=== PATIENT | female | born 1940 | race Caucasian/White ===

== ENCOUNTER 2022-06-17 09:40 | Inpatient (IN) | payer MEDICARE, OTHER ==
[~2022-06-17] VITALS: Ht 160 cm; Wt 68.0 kg
--- NOTE | 2022-06-17 11:00 | NUR ---
[id number] FROM HOME C/O RIGHT FLANK PAIN S/P GLF THIS MORNING WHILE GETTING OFF OF BED, NO LOC, DID NOT HIT HEAD, COVID+ X2DAYS. PLACED ON BED, AAOX3, BREATHING EVEN AND UNLABORED. IN PAIN- FACIAL GRIMACES.
--- NOTE | 2022-06-17 11:21 | NUR ---
blood drawn and sent to lab
[2022-06-17 11:29] LABS: BASOPHILS % (AUTO) 0.6 % (0.0-2.0); EOSINOPHILS % (AUTO) 0.3 % (0.0-6.0); HEMATOCRIT 42 % (33-45); HEMOGLOBIN 13.6 g/dL (11.5-14.8); LYMPHOCYTES % (AUTO) 18.3 % (20.0-44.0); MEAN CORPUSCULAR HGB CONC 33 g/dl (31.0-36.0); MEAN CORPUSCULAR VOLUME 82 fL (82-100); MONOCYTES # (AUTO) 0.7 K/uL (0.1-1.30); MONOCYTES % (AUTO) 11.5 % (2.0-12.0); NEUTROPHILS % (AUTO) 69.3 % (43.0-81.0); PLATELET COUNT (AUTO) 265 K/uL (150-450); RED BLOOD CELL COUNT(AUTO) 5.07 MIL/uL (4.0-5.2); WHITE BLOOD COUNT (AUTO) 5.7 K/uL (4.3-11.0)
[2022-06-17 11:41] LABS: CALCIUM, SERUM 8.7 mg/dL (8.5-10.1); CREATININE 0.9 mg/dL (0.6-1.3); POTASSIUM 3.5 mmol/L (3.5-5.1)
[2022-06-17 11:47] LABS: ALBUMIN 3.6 g/dL (3.4-5.0); BILIRUBIN,DIRECT 0.1 mg/dL (0.0-0.2); BILIRUBIN,TOTAL 0.4 mg/dL (0.2-1.0); TOTAL PROTEIN, SERUM 8.2 g/dL (6.4-8.2)
--- NOTE | 2022-06-17 12:13 | NUR ---
URINE SAMPLE SENT TO LAB
[2022-06-17 12:33] LABS: BILIRUBIN,URINE NEGATIVE (NEGATIVE); COLOR,URINE YELLOW (YELLOW); LEUKOCYTE ESTERASE ,URINE NEGATIVE (NEGATIVE); NITRITE, URINE NEGATIVE (NEGATIVE); PROTEIN,URINE NEGATIVE (NEGATIVE); UGLUCOSE NEGATIVE (NEGATIVE); UROBILINOGEN,URINE 0.2 EU/dL (0.2)
[2022-06-17 12:44] LABS: BACTERIA,URINE Rare /HPF (None Seen); RBC,URINE 0-2 /HPF (0-2); SQUAMOUS EPITHELIAL CELL,UR Few /HPF (None Seen); WBC,URINE 0-2 /HPF (0-3)
--- NOTE | 2022-06-17 13:08 | NUR ---
MAY CONTACT JADA SHAUN AT [phone]
--- NOTE | 2022-06-17 14:57 | NUR ---
SWAB FOR COVID19 SENT TO LAB
--- NOTE | 2022-06-17 15:12 | NUR ---
MOVE SHEET SUBMITTED.
--- NOTE | 2022-06-17 15:15 | NUR ---
SS Note: SW was transferred call from ED to speak to the pt.'s daughter, SHAUN [phone]. Shaun stated that she needs caregiving resources for her mother as pt. has COVID right now. Per Shaun, the pt. also seems altered, weak and she is unable to care for her mother. Shaun stated she had already reached out to a SNF and they were working on accepting the pt. SW left new lifestyles guide to mcfp booklet in pt.'s charta as well as the following senior resources for caregiving. SW was notified by Heather tomas that the pt. may possibly be admitted. Noted. SW relayed above stated info. to Shaun who is agreeable and stated she would visit pt. after 6 pm. ABUSE PREVENTION: ELDER ABUSE HOTLINE (27/03) ADULT PROTECTIVE SERVICES HOTLINE LONG-TERM CARE [facility] Region AREA ON AGING (HOTLINE) ADULT DAY HEALTH CARE CARE CENTERS: Private pay or Medi-trihealth funded adult day care [facility] , [facility] Services , [facility] , [facility] Adult [facility] Care , [facility] Adult Day Health Care , [facility] Adult Daycare Center , [place] [facility] , [place] [facility] Adult [facility] , [place] ALZHEIMERS DISEASE/DEMENTIA: Alzheimers Association Helpline [facility] Chapter www.alz.org/[facility] Department of Aging www.lacity.org Family Caregiver Juda www.caregiver.org [place] Caregiver Resources Center/Family Support www.losangelesscrc.org CANCER RESOURCES: [place] Cancer Society www.cancer.org Cancer Support Community www.CancerSupportVvsb.org: CancerCare www.cancercare.org [facility] Cancer Support Mims www.[facility].org [facility] HEALTH ASSOCIATIONS: AARP www.aarp.org ALS Association (ask for Caity) www.als.org Ukrainian Diabetes Association www.diabetes.org Ukrainian Heart Association www.heart.org Ukrainian Lung Association www.lungusa.org Ukrainian Parkinson Disease Association www.apdaparkinson.org Ukrainian [place] , www.redcross.org Arthritis Foundation www.arthritis.org Crohns & Colitis Foundation of Ukrainian www.ccfa.org/chapters/[place] National Multiple Sclerosis Society www.nationalmssociety.org Myasthenia Gravis Foundation www.myasthenia-ca.org National Stroke Association www.stroke.org CONSERVATORSHIP & GUARDIANSHIP: AAR Lianet Deal Legal Services Center for Health Care Rights Eldercare Information and Referral Permanent Mold Supervisor [facility]: [facility] Bar Referral Service [facility] Legal Services Office of the Public Guardian [place] EYESIGHT DISORDER RESOURCES: [place] Macular Degeneration Foundation [facility] www.vedainstitute.org GRIEF AND BEREAVEMENT RESOURCES: [facility] , [facility] THE COYANOSA Connection , [facility] Bereavement Center , [place] HEARING DISORDER RESOURCES: [place] Telephone Access Program Deaf and Disabled Telecommunications Program www.ddtp.cpu.ca.gov HearRx Hearing Centers ([place]) Better Hearing Systems , [place] GLAD ([facility] Agency on Deafness) V/ TTY; Survey Technologist , [facility] Hearing [facility] -low income hearing aid assistance www.powder springsI Had Cancerjackson hospitalfoundation.org [place] [facility] , Maira HELP AT HOME CAREGIVER SUPPORT: In Home Support Services (Must have [facility] to be eligible) *Ask for a list of agencies that provide services to assist with care in the home. Local Senior Centers also have listings of care providers. HOME SAFETY MODIFICATIONS AND EQUIPMENT: Senior centers have additional referrals. [place] Housing and Community Investment Dept. Handyworker Program (low income) or Visit http://hcidla.[facility].org/ypk-swvpvu-xl for more information National Seating and Mobility and/or ; Forever Active www.foreveractivemed.com Stay Home Safe www.Stayhomesafe.com LIFE ALERT RESPONSE SYSTEM: Dreamfund Holdingsline Services 600-863-6016 www. Productify.Boticca Life Alert 952-440-5519 www.lifeStribert.Boticca Life Station 444-836-3201 www.J-Kanation.Boticca Safe Return 144-594-6059 www.alz.or/safereturn Cell Phones for Seniors www.Selah Genomics MEALS AND FOOD PROGRAMS: [place] Meals on Wheels [phone] [place] Meals on Wheels [phone] [facility] [phone] [place] to the Homebound [phone] Rock to the Homebound [phone] [facility] to the Homebound [phone] [facility] to the Homebound [phone] [facility] Vitor Quach [phone] [facility] 740-064-4721 ONE Generation [phone] [facility] [phone] [facility] [phone] Meals on Wheels [phone] For all ages: $6.85/ meal w side. Delivered M-F from 10 am-1pm. Application and payment is done over the phone. Frozen meals available for weekends. CloudWork Food [facility] [phone] [facility] Receptionist Scheduler [phone] [facility] [phone] [facility]- Brown bag lunches [phone] [facility] [phone] MEAL/GROCERY DELIVERY PROGRAMS: [facility] Gourmet Meals [phone]- [facility] [phone]- [facility] Magic Kitchen [phone] Moms Meals [phone] (ask Spann for Discount Select grocery stores may provide delivery. MEDICAL INSURANCE SUPPORT SERVICES: Center for Health Care Rights [phone] Health Insurance Counseling/Advocacy Programs (HICAP)-Must have Medicare. Offers counseling for Medi-Jorje eligibility [phone] Department of Public Receptionist Scheduler [phone] www.dhcs.ca.gov Medicare 264-223-8466 www.socialsecurity.org Social Security [phone] SENIOR ACTIVITY PROGRAMS: *Contact a local senior center, adult school, recreation facility or community college for education, fitness, recreation, and social programs. Aquatic Therapy and Adapted Exercise programs through [facility] [phone] Encore at [facility] [phone] www.[facility]/encore H2U- Senior Friends [phone] [place] Senior Programs [phone] www.oasisnet.org Suddenly 65 www..com SENIOR CENTERS: [facility] [phone] [facility] [phone] [facility] [phone] [facility] [phone] [facility] [phone] [facility] [phone] [facility] [phone] [facility] [phone] [facility] [phone] [facility] [phone] [facility] [phone] [facility] [phone] [facility] [phone] TRANSPORTATION: Local [facility] may have applications for transportation programs and additional resources. ACCESS Services [phone] Transportation for seniors and disabled persons 7 days a week requiring 254 hr. advance reservation. Must apply and register for program aubrey eligible. [employer] 759-163-2387 or [phone] Transportation for seniors and persons with ADA card/metro disabled card in the [facility]. M-F only. Must register for services. ONE GENERATION [phone] Serves 65 years + in conjunction with Women.come program. Must be registered with both programs. A to B Transport [phone] Provides wheelchair/gurney van service. Adult Medical Transport [phone] Accepts [facility]-trihealth with prior authorization. Care Van [phone] Provides wheelchair Transport. City Wide Transportation [phone] Provides gurney service Gentle Care [phone] Gurney Transport. All Town Transportation [phone] wheelchair & gurney transport D Transportation [phone] wheelchair & gurney transport [place] Non-Emergency Transport [phone] wheelchair & gurney transport Independent Living Center [phone] Short Term Transportation primarily for adults with disabilities on social security income. Nominal fee may apply and a reservation is required. [facility] Cab [phone] or [phone] Kindful [phone] [place] [address] Referral Services -[phone] For additional programs & services VETERANS RESOURCES: Submissions for Aid and Attendance should be done directly to [facility] office locatd at : [address] [phone] National Caregiver Support Line [phone] [facility] Veterans Services Field Office [phone] [place] Department of [place] Affairs [phone] Pension Information [phone]
[2022-06-17] MEDS ORDERED: OLME40TA18 PO (15:20)
[2022-06-17] MEDS ORDERED: DOCU250C14 PO (15:20)
[2022-06-17] MEDS ORDERED: SITA1TAB2 PO (15:20)
[2022-06-17] MEDS ORDERED: ATOR40TA PO (15:20)
[2022-06-17] MEDS ORDERED: CALC500T52 PO (15:20)
[2022-06-17] MEDS ORDERED: DULO30CA52 PO (15:20)
[2022-06-17] MEDS ORDERED: ICOS1CAP PO (15:20)
[2022-06-17] MEDS ORDERED: ASPI-1420 PO (15:20)
[2022-06-17] MEDS ORDERED: DEXL60CA3 PO (15:20)
[2022-06-17] MEDS ORDERED: FENO134C PO (15:20)
[2022-06-17] MEDS ORDERED: METO-357 PO (15:20)
--- NOTE | 2022-06-17 15:37 | NUR ---
HAYES [phone] JADA FOR UPDATES
--- NOTE | 2022-06-17 16:59 | NUR ---
GOT BED 102
--- NOTE | 2022-06-17 18:00 | NUR ---
PT REPORT GIVEN TO ABENA KOO
--- NOTE | 2022-06-17 18:20 | NUR ---
PATIENT ADMITTED FOR AMBREEN ROOM 110
--- NOTE | 2022-06-17 18:40 | NUR ---
rn note patient is alert and oriented x2. patient is wolof speaking only.patient skin intact. patient is on covid isolation. patient is on room air tolerating above 95%. patient has iv. iv intact, flushing well. patient is fall risk.all safety measures in place. call light within reach. bed locked at lowest position. side rails up x2.bed alarm on
[2022-06-17 18:50] VITALS: BP 112/75
--- NOTE | 2022-06-17 19:20 | NUR ---
rn closing note patient is alert and oriented x2. patient is luxembourgish speaking only.patient skin intact. patient is on covid isolation. patient is on room air tolerating above 95%. no signs of pain or discomfort. patient has iv. iv intact, flushing well. patient is fall risk.all safety measures in place. call light within reach. bed locked at lowest position. side rails up x2.bed alarm on.patient orders not yet placed. endorsed to slot shift supervisor rn
--- NOTE | 2022-06-17 19:30 | NUR ---
MS RN NOTE RECEIVED PATIENT IN BED, A/OX3 LATVIAN SPEAKING. ON RA TOLERATING WELL, NO S/S OF ACUTE DISTRESS. PATEINT HAS A SMALL PRODUCTIVE COUGH. IV ACCESS ON LAC #20G, CURRENTLY AWAITING ORDERS FROM A NEW ADMIT. ALL SAFETY MEASURES IN PLACE, CALL LIGHT WITHIN REACH AT ALL TIMES. WILL CONTINUE TO MONITOR THROUGHOUT SHIFT.
[2022-06-17 20:00] VITALS: BP 143/83
--- NOTE | 2022-06-17 20:05 | NUR ---
RN NOTE STARTED COOLING MEASURES. ICE PACKS SINCE NO ORDERS FROM OF YET.
--- NOTE | 2022-06-17 20:13 | NUR ---
RN NOTE SWALLOW EVAL DONE AT BEDSIDE PATIENT ABLE TO DRINK WATER WITH NO SIGNS ASPIRATIONS. NO DIET IN ORDERS OF YET.
--- NOTE | 2022-06-17 21:25 | NUR ---
RN NOTE MESSAGED DR KRAMER ADVISED OF NEW TEMP, WENT DOWN TO 99.[address] KRAMER ADVISED IN THE PROCESS OF DOING THE ORDERS.
--- NOTE | 2022-06-17 23:07 | NUR ---
RN NOTE GOT AN ORDER FOR SOFT WRIST RESTRAINTS FROM DR. KRAMER, PATIENT IS A FALL RISK, AND KEEPS TAKING OFF GOWN, AND PULLED OUT HER IV. NEW IV INSERTED ON LAC #20G
[2022-06-18] MEDS ORDERED: ALBUTEROL FS 2.5 MG/0.5 ML VIAL.NEB NEB SCH (00:30)
[2022-06-18] MEDS ORDERED: ACETAMINOPHEN 325 MG TABLET PO PRN (00:30)
[2022-06-18] MEDS ORDERED: Z GUARD REMEDY 4 OZ OINT TP PRN (00:30)
[2022-06-18] MEDS ORDERED: ONDANSETRON HCL/PF 4 MG/2 ML VIAL IVP PRN (00:30)
[2022-06-18] MEDS: ENOXAPARIN SODIUM 40 MG/0.4 ML DISP.SYRIN SQ SCH ×2 (00:47→21:35)
[2022-06-18] MEDS: IPRATROPIUM NEB FS 0.5 MG/2.5 ML AMPUL.NEB NEB SCH ×7 (03:30→23:42)
[2022-06-18 04:00] VITALS: BP 119/72
[2022-06-18 06:49] LABS: BASOPHILS % (AUTO) 0.8 % (0.0-2.0); EOSINOPHILS % (AUTO) 0.6 % (0.0-6.0); HEMATOCRIT 42 % (33-45); HEMOGLOBIN 13.7 g/dL (11.5-14.8); LYMPHOCYTES # (AUTO) 1.2 K/uL (0.8-4.8); LYMPHOCYTES % (AUTO) 22.4 % (20.0-44.0); MEAN CORPUSCULAR HGB CONC 33 g/dl (31.0-36.0); MEAN CORPUSCULAR VOLUME 83 fL (82-100); MONOCYTES # (AUTO) 0.6 K/uL (0.1-1.30); MONOCYTES % (AUTO) 10.7 % (2.0-12.0); NEUTROPHILS # (AUTO) 3.6 K/uL (1.8-8.9); NEUTROPHILS % (AUTO) 65.5 % (43.0-81.0); PLATELET COUNT (AUTO) 248 K/uL (150-450); RED BLOOD CELL COUNT(AUTO) 5.05 MIL/uL (4.0-5.2); WHITE BLOOD COUNT (AUTO) 5.5 K/uL (4.3-11.0)
[2022-06-18 07:14] LABS: CHOLESTEROL 212 mg/dL (<200); HDL CHOLESTEROL 26 mg/dL (40-60); LDL 144 mg/dL (0-99); TRIGLYCERIDES 265 mg/dL (30-150)
--- NOTE | 2022-06-18 07:37 | NUR ---
MS RN CLOSING NOTE PATIENT IN BED, A/OX3 BELIZEAN SPEAKING. ON RA TOLERATING WELL, NO S/S OF ACUTE DISTRESS. PATEINT HAS A SMALL PRODUCTIVE COUGH. IV ACCESS ON LAC #20G, INTACT AND PATENT, VSS. ALL SAFETY MEASURES IN PLACE, CALL LIGHT WITHIN REACH AT ALL TIMES. WILL ENDORSE TO MORNING SHIFT.
[2022-06-18 08:00] VITALS: BP 123/73
[2022-06-18] MEDS: GLUCERNA SHAKE 237 ML CAN PO SCH ×2 (08:00→16:52)
--- NOTE | 2022-06-18 08:00 | NUR ---
RN NOTES RECEIVED PATIENT IN THE BED , MACEDONIAN SPEAKER. PATIENT ISOLATION OF COVID-19, SIGN AND SYMPTOMS OF COUGHING, ALSO PATIENT HAS PREVIOUS FALL AT HOME. PATIENT UNSTABLE TO AMBULATE, HIGH FALL RISK. RECHECKED BILATERAL RESTRAIN CIRCULATION INTACT. DUE MEDICATION ADMINISTERED. CALL LIGHT WITHIN TO REACH . PATIENT USING DIAPER. CALL LIGHT WITHIN TO REACH. WILL FOLLOW UP.
[2022-06-18 08:50] LABS: ALANINE AMINOTRANSFERASE 20 U/L (12-78); ALBUMIN 3.3 g/dL (3.4-5.0); ALKALINE PHOSPHATASE 33 U/L (46-116); ASPARTATE AMINOTRANSFERASE 51 U/L (15-37); BILIRUBIN,TOTAL 0.4 mg/dL (0.2-1.0); CALCIUM, SERUM 8.7 mg/dL (8.5-10.1); CARBON DIOXIDE 17 mmol/L (21-32); CHLORIDE 102 mmol/L (98-107); CREATININE 0.8 mg/dL (0.6-1.3); GLUCOSE 144 mg/dL (74-106); MAGNESIUM 2.1 mg/dL (1.8-2.4); PHOSPHORUS 3.8 mg/dL (2.5-4.9); POTASSIUM 3.6 mmol/L (3.5-5.1); SODIUM SERUM 135 mmol/L (136-145); TOTAL PROTEIN, SERUM 7.9 g/dL (6.4-8.2); UREA NITROGEN, BLOOD 13 mg/dL (7-18)
[2022-06-18] MEDS: CALCIUM CARBONATE (1250) 500 MG TABLET PO SCH ×2 (10:56→16:52)
[2022-06-18] MEDS: PANTOPRAZOLE 40 MG TABLET.DR PO SCH (10:56)
[2022-06-18] MEDS: DOCUSATE SODIUM 250 MG CAPSULE PO SCH ×2 (10:56→16:52)
[2022-06-18] MEDS: ASPIRIN EC 81 MG TABLET.DR PO SCH (10:57)
[2022-06-18] MEDS: DULOXETINE HCL 30 MG CAPSULE.DR PO SCH (10:57)
[2022-06-18] MEDS: METOPROLOL SUCCINATE 50 MG TAB.SR.24H PO SCH (10:58)
[2022-06-18] MEDS: DEXAMETHASONE SOD PHOSPHATE 10 MG/ML VIAL IV SCH (10:58)
[2022-06-18 12:00] VITALS: BP 120/68
--- NOTE | 2022-06-18 12:45 | NUR ---
RN NOTES PATIENT WAS COMPLAINING OF PAIN LEFT AND RIGHT SHOULDERS. NOTIFIED HOSPITALIST Dr KRAMER, AND GET VERBAL ORDER LEFT AND RIGHT SHOULDER X-RAY. ORDER TAKEN AND CARRIED OUT.
--- NOTE | 2022-06-18 13:01 | NUR ---
RN NOTES PER YESTERDAY X-RAY RESULT Indication: Left shoulder status post fall Technique: AP views of the left shoulder in external and internal rotation are provided. Findings: Superior glenoid rim demonstrates questionable irregularity. Glenohumeral joint is unremarkable. Impression: Glenoid: Questionable irregularity of the superior glenoid rim, raising the possibility of subacute injury. If indicated, CT can be obtained for further evaluation. NOTIFIED DR SREEKANTH KRAMER, AND WAITING FOR NEW ORDERS.
[2022-06-18 16:00] VITALS: BP 153/78
--- NOTE | 2022-06-18 16:00 | NUR ---
rn notes patient taken to the CT scan at this time.
--- NOTE | 2022-06-18 17:34 | NUR ---
rn notes per family unable take patient home because of covid-19, case management aware of transfer to the facilities excepting , and notified hospitalist as well.
--- NOTE | 2022-06-18 18:30 | NUR ---
rn notes patient stable, pm care done, no acute respiratory distress, room air, due medication administered, vss. rechecked bilateral wrist restrain for circulation . side rails up bed alarm on for safety precaution. endorsed oncoming nurse follow plan of care.
[2022-06-18 20:00] VITALS: BP 144/86
--- NOTE | 2022-06-18 20:23 | NUR ---
RN NOTE RECEIVED PT IN BED, AWAKE, ALERT, SOME CONFUSION. NOT IN ANY DISTRESS. ERICKA WRIST RESTRAINTS ON, GOOD CIRCULATION. COMPLAINED OF R SHOULDER MILD PAIN. ALL SAFETY MEASURES IN PLACE, WILL CONTINUE TO MONITOR.
--- NOTE | 2022-06-18 21:08 | NUR ---
RN NOTE SPOKE TO PT DAUGHTER SHAUN. WAS INFORMED THAT PT HAVE OSTEOARTHRITIS AND TAKES TRAMADOL AT HOME BUT UNSURE OF THE DOSE. NOTIFIED HUMAN RESOURCES DESIGNATE UGO, TO ORDER TRAMADOL 50MG PO Q6H PRN FOR PAIN.
[2022-06-18] MEDS: TRAMADOL HCL 50 MG TABLET PO PRN (21:35)
[2022-06-18] MEDS: ATORVASTATIN 40 MG TABLET PO SCH (21:36)
--- NOTE | 2022-06-19 00:52 | NUR ---
RN NOTE PT ABLE TO REMOVED RESTRAINTS, ATTEMPTING TO GET OUT FROM BED. SAFETY MEASURES MAINTAINED.
[2022-06-19] MEDS: IPRATROPIUM NEB FS 0.5 MG/2.5 ML AMPUL.NEB NEB SCH ×7 (03:22→23:30)
[2022-06-19 04:00] VITALS: BP 149/70
[2022-06-19 07:08] LABS: BASOPHILS % (AUTO) 0.2 % (0.0-2.0); HEMATOCRIT 39 % (33-45); LYMPHOCYTES # (AUTO) 0.9 K/uL (0.8-4.8); LYMPHOCYTES % (AUTO) 19.7 % (20.0-44.0); MEAN CORPUSCULAR HGB CONC 33 g/dl (31.0-36.0); MEAN CORPUSCULAR VOLUME 82 fL (82-100); MONOCYTES # (AUTO) 0.4 K/uL (0.1-1.30); MONOCYTES % (AUTO) 9.3 % (2.0-12.0); NEUTROPHILS # (AUTO) 3.4 K/uL (1.8-8.9); NEUTROPHILS % (AUTO) 70.8 % (43.0-81.0); PLATELET COUNT (AUTO) 264 K/uL (150-450); RED BLOOD CELL COUNT(AUTO) 4.75 MIL/uL (4.0-5.2); WHITE BLOOD COUNT (AUTO) 4.8 K/uL (4.3-11.0)
[2022-06-19 07:20] LABS: CALCIUM, SERUM 9.2 mg/dL (8.5-10.1); CREATININE 0.7 mg/dL (0.6-1.3); PHOSPHORUS 3.1 mg/dL (2.5-4.9)
--- NOTE | 2022-06-19 07:28 | NUR ---
RN NOTE PT SLEEPING. AROUSES EASILY. NOT IN ANY DISTRESS. ISOLATION PRECAUTION MAINTAINED. REMAIN AFEBRILE. ON FREQUENT VISUAL CHECKS. ALL SAFETY MEASURES MAINTAINED. ENDORSED TO AM SHIFT NURSE FOR AMBREEN.
--- NOTE | 2022-06-19 07:29 | NUR ---
RN OPENING NOTE RECEIVED PT IN BED, AWAKE, ALERT, SOME CONFUSION. NOT IN ANY DISTRESS. ERICKA WRIST RESTRAINTS ON, CIRCULATION IS WITHIN NORMAL LIMITS. IV ACCESS ON LEFT ANTECUBITAL 20 GAUGE. ALL SAFETY MEASURES IN PLACE, WILL CONTINUE PLAN OF CARE AND ANTICIPATE NEEDS.
[2022-06-19] MEDS: PANTOPRAZOLE 40 MG TABLET.DR PO SCH (07:54)
[2022-06-19] MEDS: GLUCERNA SHAKE 237 ML CAN PO SCH ×2 (07:56→16:26)
--- NOTE | 2022-06-19 09:09 | NUR ---
TX NOT GIVEN DUE COVID POSITIVE Addendum: 06/19/22 at 0911 by CONSUELO GOMEZ RT Amended: Links added.
[2022-06-19] MEDS: DEXAMETHASONE SOD PHOSPHATE 10 MG/ML VIAL IV SCH (09:36)
[2022-06-19] MEDS: ASPIRIN EC 81 MG TABLET.DR PO SCH (09:37)
[2022-06-19] MEDS: DULOXETINE HCL 30 MG CAPSULE.DR PO SCH (09:37)
[2022-06-19] MEDS: DOCUSATE SODIUM 250 MG CAPSULE PO SCH ×2 (09:37→16:26)
[2022-06-19] MEDS: METOPROLOL SUCCINATE 50 MG TAB.SR.24H PO SCH (09:37)
[2022-06-19] MEDS: CALCIUM CARBONATE (1250) 500 MG TABLET PO SCH ×2 (09:37→16:26)
[2022-06-19 12:00] VITALS: BP 156/72
[2022-06-19 16:00] VITALS: BP 137/68
--- NOTE | 2022-06-19 18:28 | NUR ---
RN CLOSING NOTE PATIENT IN BED, AWAKE, ALERT, SOME CONFUSION. NOT IN ANY DISTRESS. ERICKA WRIST RESTRAINTS ON, CIRCULATION IS WITHIN NORMAL LIMITS. IV ACCESS ON LEFT ANTECUBITAL 20 GAUGE FLUSHING EASILY WITHOUT RESISTANCE. ALL SAFETY MEASURES IN PLACE. ALL DUE MEDICATIONS GIVEN ORDERED. WILL ENDORSE TO NIGHTSHIFT RN FOR CONTINUATION OF CARE.
[2022-06-19 20:00] VITALS: BP 162/76
[2022-06-19] MEDS: ATORVASTATIN 40 MG TABLET PO SCH (21:43)
[2022-06-19] MEDS: ENOXAPARIN SODIUM 40 MG/0.4 ML DISP.SYRIN SQ SCH (21:45)
[2022-06-19] MEDS: TRAMADOL HCL 50 MG TABLET PO PRN (23:19)
[2022-06-20] VITALS: BP 149/76
[2022-06-20] MEDS: IPRATROPIUM NEB FS 0.5 MG/2.5 ML AMPUL.NEB NEB SCH ×6 (02:59→23:30)
[2022-06-20 04:00] VITALS: BP 152/71
[2022-06-20 05:53] LABS: BASOPHILS % (AUTO) 0.2 % (0.0-2.0); EOSINOPHILS % (AUTO) 0.1 % (0.0-6.0); HEMATOCRIT 39 % (33-45); HEMOGLOBIN 12.9 g/dL (11.5-14.8); LYMPHOCYTES # (AUTO) 1.3 K/uL (0.8-4.8); MEAN CORPUSCULAR HGB CONC 33 g/dl (31.0-36.0); MEAN CORPUSCULAR VOLUME 82 fL (82-100); MONOCYTES # (AUTO) 0.7 K/uL (0.1-1.30); MONOCYTES % (AUTO) 8.9 % (2.0-12.0); NEUTROPHILS # (AUTO) 5.3 K/uL (1.8-8.9); NEUTROPHILS % (AUTO) 72.8 % (43.0-81.0); PLATELET COUNT (AUTO) 266 K/uL (150-450); RED BLOOD CELL COUNT(AUTO) 4.78 MIL/uL (4.0-5.2); WHITE BLOOD COUNT (AUTO) 7.3 K/uL (4.3-11.0)
--- NOTE | 2022-06-20 06:38 | NUR ---
RN CLOSING NOTE PATIENT RESTING IN BED. ON COVID ISOLATION. A/OX2, ROOM AIR. NO SOB NOTED. PATIENT C/O PAIN PRN TRAMADOL GIVEN. MED SURG STATUS. POSSIBLE DC TODAY.
[2022-06-20 06:50] LABS: CALCIUM, SERUM 9.2 mg/dL (8.5-10.1); CREATININE 0.8 mg/dL (0.6-1.3); MAGNESIUM 1.6 mg/dL (1.8-2.4); PHOSPHORUS 2.9 mg/dL (2.5-4.9); POTASSIUM 3.7 mmol/L (3.5-5.1)
--- NOTE | 2022-06-20 07:05 | NUR ---
RN OPENING NOTES" received patient in bed asleep but easily arousable, alert and oriented x2. patient is danish speaking only.patient skin intact. patient is on contact and droplet isolation for COVID. patient is on room air tolerating above 95%. patient has iv on LAC G#20. iv intact, flushing well. patient is fall risk.all safety measures in place. call light within reach. bed locked at lowest position. side rails up x2.bed alarm on, will monitor
[2022-06-20] MEDS: PANTOPRAZOLE 40 MG TABLET.DR PO SCH (07:35)
[2022-06-20 08:00] VITALS: BP 143/82
[2022-06-20] MEDS: GLUCERNA SHAKE 237 ML CAN PO SCH ×2 (08:09→17:51)
[2022-06-20] MEDS: ASPIRIN EC 81 MG TABLET.DR PO SCH (09:13)
[2022-06-20] MEDS: METOPROLOL SUCCINATE 50 MG TAB.SR.24H PO SCH (09:13)
[2022-06-20] MEDS: DOCUSATE SODIUM 250 MG CAPSULE PO SCH ×2 (09:13→17:51)
[2022-06-20] MEDS: CALCIUM CARBONATE (1250) 500 MG TABLET PO SCH ×2 (09:13→17:51)
[2022-06-20] MEDS: DULOXETINE HCL 30 MG CAPSULE.DR PO SCH (09:13)
[2022-06-20] MEDS ORDERED: MAGNESIUM OXIDE 400 MG TABLET PO ONE (10:00)
[2022-06-20 16:00] VITALS: BP 130/69
--- NOTE | 2022-06-20 18:37 | NUR ---
RN NOTES: PT DAUGHTER ASK WHAT DM MEDICINE RESIDENT HAS, SPOKE TO DR SREEKANTH KRAMER WITH ORDER TO START MILD SLIDING SCALE AND SHE CAN RESTART METFORMIN UPON DISCHARGE, ORDER NOTED AND CARRIED OUT
[2022-06-20] MEDS ORDERED: DEXTROSE 50%-WATER 50 ML DISP.SYRIN IV PRN (19:00)
--- NOTE | 2022-06-20 19:30 | NUR ---
MS RN OPENING NOTE RECEIVED PATIENT IN BED, A/OX3 HEBREW SPEAKING, WITH EPISODES OF CONFUSION. ON RA TOLERATING WELL, NO S/S OF ACUTE DISTRESS. IV ACCESS ON LAC #20G, INTACT AND PATENT, VSS.ERICKA WRIST RESTRAINTS ORDERED NOT ON AT THE MOMENT, CIRCULATION IS WITHIN NORMAL LIMITS. ALL SAFETY MEASURES IN PLACE, CALL LIGHT WITHIN REACH AT ALL TIMES. WILL CONTINUE TO MONITOR THROUGHOUT SHIFT.
--- NOTE | 2022-06-20 19:32 | NUR ---
RN CLOSING NOTE PATIENT IN BED, AWAKE, ALERT, SOME CONFUSION. NOT IN ANY DISTRESS. continue on COVID isolation. IV ACCESS ON LEFT ANTECUBITAL 20 GAUGE FLUSHING EASILY WITHOUT RESISTANCE. ALL SAFETY MEASURES IN PLACE. ALL DUE MEDICATIONS GIVEN ORDERED. WILL ENDORSE TO NIGHTSHIFT RN FOR CONTINUATION OF CARE.
[2022-06-20 20:00] VITALS: BP 143/67
[2022-06-20] MEDS: ATORVASTATIN 40 MG TABLET PO SCH (21:29)
[2022-06-20] MEDS: ENOXAPARIN SODIUM 40 MG/0.4 ML DISP.SYRIN SQ SCH (21:30)
[2022-06-21] MEDS: BLOOD SUGAR DIAGNOSTIC 1 EACH STRIP IN SCH ×3 (00:51→12:14)
[2022-06-21] MEDS: INSULIN REGULAR, HUMAN 100 UNIT/ML 3 ML VIAL SQ PRN ×3 (00:51→12:13)
[2022-06-21] MEDS: IPRATROPIUM NEB FS 0.5 MG/2.5 ML AMPUL.NEB NEB SCH ×3 (03:30→11:19)
[2022-06-21 04:00] VITALS: BP 109/73
[2022-06-21 05:59] LABS: BASOPHILS % (AUTO) 0.3 % (0.0-2.0); EOSINOPHILS % (AUTO) 0.6 % (0.0-6.0); HEMATOCRIT 39 % (33-45); HEMOGLOBIN 13.1 g/dL (11.5-14.8); LYMPHOCYTES # (AUTO) 1.6 K/uL (0.8-4.8); MEAN CORPUSCULAR HGB CONC 33 g/dl (31.0-36.0); MEAN CORPUSCULAR VOLUME 81 fL (82-100); MONOCYTES # (AUTO) 0.6 K/uL (0.1-1.30); MONOCYTES % (AUTO) 8.7 % (2.0-12.0); NEUTROPHILS # (AUTO) 4.5 K/uL (1.8-8.9); NEUTROPHILS % (AUTO) 66.4 % (43.0-81.0); PLATELET COUNT (AUTO) 231 K/uL (150-450); RED BLOOD CELL COUNT(AUTO) 4.87 MIL/uL (4.0-5.2); WHITE BLOOD COUNT (AUTO) 6.8 K/uL (4.3-11.0)
[2022-06-21 06:19] LABS: CALCIUM, SERUM 8.7 mg/dL (8.5-10.1); CARBON DIOXIDE 27 mmol/L (21-32); CHLORIDE 100 mmol/L (98-107); CREATININE 0.7 mg/dL (0.6-1.3); GLUCOSE 122 mg/dL (74-106); MAGNESIUM 1.8 mg/dL (1.8-2.4); POTASSIUM 3.1 mmol/L (3.5-5.1); SODIUM SERUM 133 mmol/L (136-145); UREA NITROGEN, BLOOD 15 mg/dL (7-18)
--- NOTE | 2022-06-21 06:59 | NUR ---
MS RN CLOSING NOTE PATIENT IN BED, A/OX3 MALIAN SPEAKING, WITH EPISODES OF CONFUSION. ON RA TOLERATING WELL, NO S/S OF ACUTE DISTRESS. IV ACCESS ON LAC #20G, INTACT AND PATENT, VSS. ERICKA WRIST RESTRAINTS ORDERED NOT ON AT THE MOMENT, CIRCULATION IS WITHIN NORMAL LIMITS. ALL SAFETY MEASURES IN PLACE, CALL LIGHT WITHIN REACH AT ALL TIMES. WILL ENDORSE TO MORNING SHIFT FOR CONTINUOUS OF CARE
--- NOTE | 2022-06-21 07:30 | NUR ---
BULLET SLUG CASTING MACHINE OPERATOR OPENING NOTES: RECEIVED PATIENT IN BED, AWAKE, ALERT, ORIENTED X 3. NO RESPIRATORY DISTRESS NOTED AT THIS TIME. ON RA WITH OXYGEN SATURATION OF 97%. PATIENT HAS IV ACCESS ON LEFT AC # 20, INTACT, PATENT AND FLUSHES WELL. BED LOCKED AND IN LOWEST POSITION. ALL SAFETY MEASURES IN PLACE, BED ALARM ON. CALL LIGHT WITHIN REACH. WILL CONTINUE TO MONITOR PATIENT THROUGHOUT SHIFT.
[2022-06-21] MEDS: GLUCERNA SHAKE 237 ML CAN PO SCH (07:51)
[2022-06-21] MEDS: PANTOPRAZOLE 40 MG TABLET.DR PO SCH (07:51)
[2022-06-21 08:20] VITALS: BP 142/87
[2022-06-21] MEDS: DOCUSATE SODIUM 250 MG CAPSULE PO SCH (08:20)
[2022-06-21] MEDS: CALCIUM CARBONATE (1250) 500 MG TABLET PO SCH (08:20)
[2022-06-21] MEDS: METOPROLOL SUCCINATE 50 MG TAB.SR.24H PO SCH (08:20)
[2022-06-21] MEDS: ASPIRIN EC 81 MG TABLET.DR PO SCH (08:20)
[2022-06-21] MEDS: DULOXETINE HCL 30 MG CAPSULE.DR PO SCH (08:20)
[2022-06-21] MEDS ORDERED: POTASSIUM CHLORIDE 20 MEQ TAB.PRT.SR PO SCH (10:00)
--- NOTE | 2022-06-21 12:45 | NUR ---
PATIENT HAS AN ORDER FOR DISCHARGE. CALLED [facility] @ , SPOKE WITH NURSE PATIÑO AND GAVE FULL REPORT FOR THE PATIENT AND THE RULING MACHINE OPERATOR TIME HERE @ SO @ 2478. PATIENT'S DAUGHTER HAYES WAS PREVIOUSLY MADE AWARE OF THE TRANSFER TO SNF, DAUGHTER AGREED AND UNDERSTOOD.
--- NOTE | 2022-06-21 13:54 | NUR ---
TRANSPORTATION CAEM TO SCREW MACHINE OPERATOR SWISS TYPE THE PATIENT, V/S FOLLOWS: BP 140/89, PULSE 65, TEMP 98.5, RR 18, OXYGEN SATURATION ON RA IS 97%. PATIENT LEFT IN NO ACUTE DISTRESS AND LEFT VIA W/C
[2022-06-21] MEDS: TRAMADOL HCL 50 MG TABLET PO PRN (14:11)
== END 2022-06-21 14:32 | DRG 178 ==
LOC: ER 09:42 → MEDSG1 18:09
PROVIDERS: ADMIT Nurse Practitioner Acute Care; ATTEND Student in an Organized Health Care Education/Training Program
DX: U07.1 COVID-19 (principal); E87.1 Hypo-osmolality and hyponatremia; D32.9 Benign neoplasm of meninges, unspecified; K21.9 Gastro-esophageal reflux disease without esophagitis; E78.5 Hyperlipidemia, unspecified; I10 Essential (primary) hypertension; Z79.82 Long term (current) use of aspirin; Z86.011 Personal history of benign neoplasm of the brain; W19.XXXA Unspecified fall, initial encounter; Y93.9 Activity, unspecified; Y92.009 Unspecified place in unspecified non-institutional (private) residence as the place of occurrence of the external cause; M19.012 Primary osteoarthritis, left shoulder; S46.092S Other injury of muscle(s) and tendon(s) of the rotator cuff of left shoulder, sequela; R29.6 Repeated falls
CPT/HCPCS: 36415; 70450-TC; 71045-TC; 73030-TC; 73200-TC; 80048-TC; 80053-TC; 80061-TC; 80076-TC; 81001; 82962-TC; 83735-TC; 84100-TC; 84484-TC; 85025-TC; 85378-TC; 86140-TC; 87081-TC; 97116-TC; 97530-TC; C9803; G0378; J1100; J1650; J1815; J7040

== ENCOUNTER 2024-08-30 20:39 | Inpatient (IN) | payer MEDICARE, OTHER ==
[~2024-08-30] VITALS: Ht 147.3 cm; Wt 70.3 kg
[~2024-08-30 20:39] MED LIST: ASPI-1420 PO; ATOR40TA PO; CALC500T52 PO; DEXL60CA3 PO; DOCU250C14 PO; DULO30CA52 PO; FENO134C PO; ICOS1CAP PO; METO-357 PO; OLME40TA18 PO; SITA1TAB2 PO
[2024-08-30 23:14] LABS: BASOPHILS # (AUTO) 0.1 K/uL (0.0-0.2); BASOPHILS % (AUTO) 0.9 % (0.0-2.0); EOSINOPHILS # (AUTO) 0.2 K/uL (0.0-0.7); EOSINOPHILS % (AUTO) 2.3 % (0.0-6.0); HEMATOCRIT 36 % (33-45); LYMPHOCYTES # (AUTO) 2.2 K/uL (0.8-4.8); LYMPHOCYTES % (AUTO) 21.4 % (20.0-44.0); MEAN CORPUSCULAR HEMOGLOBIN 27 PG (26.0-33.0); MEAN CORPUSCULAR HGB CONC 34 g/dl (31.0-36.0); MEAN CORPUSCULAR VOLUME 80 fL (82-100); MONOCYTES # (AUTO) 0.8 K/uL (0.1-1.30); MONOCYTES % (AUTO) 7.8 % (2.0-12.0); NEUTROPHILS # (AUTO) 6.8 K/uL (1.8-8.9); NEUTROPHILS % (AUTO) 67.6 % (43.0-81.0); PLATELET COUNT (AUTO) 324 K/uL (150-450); RED BLOOD CELL COUNT(AUTO) 4.44 MIL/uL (4.0-5.2); RED CELL DISTRIBUTION WIDTH 14.9 % (11.5-15.0); WHITE BLOOD COUNT (AUTO) 10.1 K/uL (4.3-11.0)
[2024-08-30] MEDS ORDERED: OLANZAPINE 5 MG TABLET ONE (23:26)
[2024-08-30] MEDS: OLANZAPINE ZYDIS 5 MG TAB.RAPDIS PO ONE (23:27)
[2024-08-31 00:27] LABS: CALCIUM, SERUM 9.6 mg/dL (8.5-10.1); CARBON DIOXIDE 26 mmol/L (21-32); CHLORIDE 98 mmol/L (98-107); CREATININE 0.8 mg/dL (0.6-1.3); GLUCOSE 124 mg/dL (74-106); POTASSIUM 4.5 mmol/L (3.5-5.1); SODIUM SERUM 135 mmol/L (136-145); UREA NITROGEN, BLOOD 25 mg/dL (7-18)
[2024-08-31 00:55] LABS: ALANINE AMINOTRANSFERASE 14 U/L (12-78); ALBUMIN 3.7 g/dL (3.4-5.0); ALCOHOL, BLOOD < 3 mg/dL (0-10); ALKALINE PHOSPHATASE 62 U/L (46-116); ASPARTATE AMINOTRANSFERASE 13 U/L (15-37); BILIRUBIN,DIRECT 0.1 mg/dL (0.0-0.2); BILIRUBIN,TOTAL 0.3 mg/dL (0.2-1.0); TOTAL PROTEIN, SERUM 8.7 g/dL (6.4-8.2)
[2024-08-31 00:57] LABS: ACETAMINOPHEN <10 ug/ml (10-30); SALICYLATE 1.9 mg/dL (2.8-20.0)
[2024-08-31 01:40] LABS: APPEARANCE,URINE SLIGHTLY CLOUDY (CLEAR); BILIRUBIN,URINE NEGATIVE (NEGATIVE); BLOOD, URINE TRACE-INTA Ery/uL (NEGATIVE); COLOR,URINE YELLOW (YELLOW); KETONES,URINE NEGATIVE (NEGATIVE); LEUKOCYTE ESTERASE ,URINE 3+ (NEGATIVE); NITRITE, URINE POSITIVE (NEGATIVE); PROTEIN,URINE NEGATIVE (NEGATIVE); UGLUCOSE NEGATIVE (NEGATIVE); UROBILINOGEN,URINE 0.2 EU/dL (0.2)
[2024-08-31] MEDS: CEFTRIAXONE 1 G VIAL IM ONE (02:30)
[2024-08-31] MEDS ORDERED: CEFTRIAXONE 1 G VIAL ONE (02:31)
[2024-08-31 02:36] LABS: ADD URINE CULTURE YES; BACTERIA,URINE 2+ /HPF (None Seen); RBC,URINE 0-2 /HPF (0-2); WBC,URINE 21-50 /HPF (0-3)
[2024-08-31] MEDS: OLANZAPINE 10 MG VIAL IM ONE (05:30)
[2024-08-31] MEDS ORDERED: OLANZAPINE 10 MG VIAL IM ONE (05:35)
[2024-08-31] MEDS ORDERED: LORAZEPAM INJ 2 MG/ML VIAL ONE (06:41)
[2024-08-31] MEDS: LORAZEPAM INJ 2 MG/ML VIAL IM ONE (06:44)
[2024-08-31 07:44] VITALS: O2SAT 97
[2024-08-31 08:30] VITALS: BP 127/87; TEMP 97.3
[2024-08-31 08:50] VITALS: BP 127/87; TEMP 97.3; O2SAT 95
[2024-08-31] MEDS ORDERED: ACET650S11 RC (09:00)
[2024-08-31] MEDS ORDERED: ZOLPIDEM TARTRATE 5 MG TABLET PO PRN (09:00)
[2024-08-31] MEDS ORDERED: ASPI-1169 PO (09:00)
[2024-08-31] MEDS ORDERED: ACETAMINOPHEN 325 MG TABLET PO PRN (09:00)
[2024-08-31] MEDS ORDERED: ACET325T53 PO (09:00)
[2024-08-31] MEDS ORDERED: ESCI5TAB PO (09:00)
[2024-08-31] MEDS ORDERED: ERGO500093 PO (09:00)
[2024-08-31] MEDS ORDERED: ALOG12.52 PO (09:00)
[2024-08-31] MEDS ORDERED: MAG HYDROX/AL HYDROX/SIMETH 30 ML UDC PO PRN (09:00)
[2024-08-31] MEDS ORDERED: MAGNESIUM HYDROXIDE 30 ML UDC PO PRN (09:00)
[2024-08-31] MEDS ORDERED: OXYB-58 PO (09:00)
[2024-08-31] MEDS ORDERED: NA P133E4 RC (09:00)
[2024-08-31] MEDS ORDERED: METF500T PO (09:00)
[2024-08-31] MEDS ORDERED: GLYC-30 RC (09:00)
[2024-08-31] MEDS: BLOOD SUGAR DIAGNOSTIC 1 EACH STRIP IN ONE (09:37)
[2024-08-31] MEDS ORDERED: ERGOCALCIFEROL (VITAMIN D 2) 50,000 UNIT CAPSULE PO SCH (20:30)
[2024-08-31] MEDS: METFORMIN 500 MG TABLET PO SCH (20:52)
[2024-08-31] MEDS: CALCIUM CARBONATE (1250) 500 MG TABLET PO SCH (20:52)
[2024-08-31 21:05] VITALS: BP 118/88; TEMP 98.1; O2SAT 96
[2024-08-31] MEDS: CIPROFLOXACIN HCL 250 MG TABLET PO SCH (21:13)
[2024-08-31] MEDS: QUETIAPINE FUMARATE 25 MG TABLET PO SCH (21:13)
[2024-08-31] MEDS: Z GUARD REMEDY 4 OZ OINT TP SCH (21:30)
[2024-08-31] MEDS: OXYBUTYNIN CHLORIDE ER 5 MG TAB PO SCH (22:00)
[2024-08-31] MEDS: OXYBUTYNIN CHLORIDE ER 5 MG TAB PO ONE (23:10)
[2024-08-31] MEDS: LORAZEPAM 0.5 MG TABLET PO PRN (23:44)
[2024-09-01 07:52] LABS: ALBUMIN 3.7 g/dL (3.4-5.0); BILIRUBIN,TOTAL 0.5 mg/dL (0.2-1.0); CALCIUM, SERUM 9.9 mg/dL (8.5-10.1); CREATININE 1.1 mg/dL (0.6-1.3); POTASSIUM 4.6 mmol/L (3.5-5.1); TOTAL PROTEIN, SERUM 8.7 g/dL (6.4-8.2)
[2024-09-01 08:00] VITALS: BP 117/68; TEMP 97.9; O2SAT 95
[2024-09-01] MEDS: ESCITALOPRAM OXALATE (10 MG) 10 MG TABLET PO SCH (08:27)
[2024-09-01] MEDS: ASPIRIN 81 MG TAB.CHEW PO SCH (08:27)
[2024-09-01] MEDS: CIPROFLOXACIN HCL 250 MG TABLET PO SCH (08:33)
[2024-09-01 12:22] LABS: CHOLESTEROL 263 mg/dL (<200); HDL CHOLESTEROL 38 mg/dL (40-60); LDL 133 mg/dL (0-99); TRIGLYCERIDES 377 mg/dL (30-150)
[2024-09-01 16:00] VITALS: BP 133/72; TEMP 97.8; O2SAT 99
[2024-09-01 20:51] VITALS: BP 128/61; TEMP 98.1; O2SAT 96
[2024-09-02 08:00] VITALS: BP 101/63; TEMP 98.1; O2SAT 96
[2024-09-02] MEDS: Z GUARD REMEDY 4 OZ OINT TP PRN (08:33)
[2024-09-02] MEDS: LINAGLIPTIN 5 MG TABLET PO SCH (08:35)
[2024-09-02 16:00] VITALS: BP 113/60; TEMP 98.6; O2SAT 98
[2024-09-02 20:06] VITALS: BP 119/60; TEMP 97.9; O2SAT 96
[2024-09-03 08:00] VITALS: BP 125/64; TEMP 98.1; O2SAT 97
[2024-09-03 16:00] VITALS: BP 123/68; TEMP 98.8; O2SAT 98
[2024-09-03 20:00] VITALS: BP 117/57; TEMP 98.6; O2SAT 94
[2024-09-04 08:00] VITALS: BP 131/73; TEMP 98.1; O2SAT 100
[2024-09-04 15:48] VITALS: BP 122/61; TEMP 97.9; O2SAT 98
[2024-09-04 20:56] VITALS: BP 125/64; TEMP 98.3; O2SAT 92
[2024-09-05 08:00] VITALS: BP 129/61; TEMP 97.5; O2SAT 98
[2024-09-05] MEDS: ARIPIPRAZOLE 2 MG TABLET PO SCH (12:52)
[2024-09-05 16:00] VITALS: BP 132/60; TEMP 98.4; O2SAT 95
[2024-09-05 20:00] VITALS: BP 124/55; TEMP 98.1; O2SAT 95
[2024-09-06 08:00] VITALS: BP 141/67; TEMP 97.7; O2SAT 94
[2024-09-06 16:00] VITALS: BP 119/63; TEMP 98; O2SAT 95
[2024-09-06 19:48] VITALS: BP 121/77; TEMP 98.4; O2SAT 96
[2024-09-07] MEDS: LORAZEPAM 0.5 MG TABLET PO PRN (00:38)
[2024-09-07 08:00] VITALS: BP 121/62; TEMP 98; O2SAT 95
[2024-09-07 16:00] VITALS: BP 114/63; TEMP 98.9; O2SAT 96
[2024-09-07 20:21] VITALS: BP 128/79; TEMP 98.8; O2SAT 96
[2024-09-08 08:00] VITALS: BP 104/63; TEMP 97.8; O2SAT 98
[2024-09-08] MEDS: diphenhydrAMINE HCL 50 MG/ML VIAL IV ONE (11:16)
[2024-09-08] MEDS: HALOPERIDOL LACTATE INJ 5 MG/ML VIAL IM ONE (11:16)
[2024-09-08 16:00] VITALS: BP 112/63; TEMP 97.7; O2SAT 97
[2024-09-08 20:46] VITALS: BP 113/58; TEMP 97.9; O2SAT 97
[2024-09-09 08:00] VITALS: BP 114/54; TEMP 97.7; O2SAT 94
[2024-09-09] MEDS: ARIPIPRAZOLE 2 MG TABLET PO SCH (11:05)
[2024-09-09 16:00] VITALS: BP 122/52; TEMP 97.9; O2SAT 98
[2024-09-09 20:29] VITALS: BP 131/75; TEMP 97.9; O2SAT 97
[2024-09-10 08:00] VITALS: BP 128/73; TEMP 98.7; O2SAT 98
[2024-09-10] MEDS ORDERED: ARIPIPRAZOLE 2 MG TABLET PO SCH (09:00)
[2024-09-10 16:00] VITALS: BP 121/54; TEMP 98.7; O2SAT 99
[2024-09-10 20:00] VITALS: BP 125/60; TEMP 98.5; O2SAT 99
[2024-09-11 08:00] VITALS: BP 109/61; TEMP 98.6; O2SAT 98
== END 2024-09-11 13:45 | DRG 885 ==
LOC: ER 20:50 → TRANSITION 08-31 06:00 → GPS 08-31 07:03
PROVIDERS: ADMIT Psychiatry & Neurology Psychiatry; ATTEND Nurse Practitioner Acute Care
DX: F33.3 Major depressive disorder, recurrent, severe with psychotic symptoms (principal); G93.41 Metabolic encephalopathy; E87.1 Hypo-osmolality and hyponatremia; N39.0 Urinary tract infection, site not specified; F03.93 Unspecified dementia, unspecified severity, with mood disturbance; D68.69 Other thrombophilia; F29 Unspecified psychosis not due to a substance or known physiological condition; E11.9 Type 2 diabetes mellitus without complications; E86.0 Dehydration; E66.9 Obesity, unspecified; I10 Essential (primary) hypertension; Z79.82 Long term (current) use of aspirin; Z73.6 Limitation of activities due to disability; E78.5 Hyperlipidemia, unspecified; B96.89 Other specified bacterial agents as the cause of diseases classified elsewhere; R53.1 Weakness; R26.81 Unsteadiness on feet; Z68.32 Body mass index [BMI] 32.0-32.9, adult; Z20.822 Contact with and (suspected) exposure to COVID-19
CPT/HCPCS: 36415; 80048-TC; 80053-TC; 80061-TC; 80076-TC; 81001; 85025-TC; 87081-TC; 87086-TC; 92526; 92611-TC; G0480; J0696; J1200; J1630; J2060; J3490